=== PATIENT | male | born 1995 | race Caucasian/White ===

== ENCOUNTER 2023-10-05 14:28 | Emergency (ER) | payer OTHER ==
[~2023-10-05] VITALS: Ht 175.3 cm; Wt 83.9 kg
[2023-10-05 15:31] VITALS: BP 130/82
== END 2023-10-05 15:33 | disposition home or self-care (01) ==
LOC: ED 14:28 → EDBD 14:29 → ED 15:33
DX: S05.01XA Injury of conjunctiva and corneal abrasion without foreign body, right eye, initial encounter (principal); X58.XXXA Exposure to other specified factors, initial encounter; Y99.0 Civilian activity done for income or pay
CPT/HCPCS: 99283